=== PATIENT | female | born 1960 | race Caucasian/White ===

== ENCOUNTER 2019-07-15 06:27 | Emergency (ER) | payer BC, OTHER | END 2019-07-15 07:20 | disposition home or self-care (01) | LOC: BURERS 06:27 | DX: F41.0 Panic disorder [episodic paroxysmal anxiety] (principal); I10 Essential (primary) hypertension ==

== ENCOUNTER 2019-10-24 19:09 | Emergency (ER) | payer BC ==
[2019-10-24] MEDS ORDERED: Ketorolac Tromethamine 60 MG/2 ML VIAL ONE (20:02)
[2019-10-24] MEDS ORDERED: HYDROcodone/Acetaminophen 5/325 mg Tablet ONE (20:02)
== END 2019-10-24 20:10 | disposition home or self-care (01) ==
LOC: BURERS 19:09
DX: J06.9 Acute upper respiratory infection, unspecified (principal); I10 Essential (primary) hypertension; Z79.899 Other long term (current) drug therapy
CPT/HCPCS: 87804; 99284; J1885